=== PATIENT | female | born 1975 | race Caucasian/White ===

== ENCOUNTER 2019-07-29 13:51 | Emergency (ER) | payer BC ==
[~2019-07-29] VITALS: Ht 165.1 cm; Wt 53.5 kg
[2019-07-29 13:58] VITALS: BP 104/70
--- NOTE | 2019-07-29 14:15 | NUR ---
SEEN AND EXAMINED BY .
--- NOTE | 2019-07-29 14:38 | NUR ---
PHARMACY TECHNICIAN ASSISTANT AT BEDSIDE FOR XRAY.
--- NOTE | 2019-07-29 15:32 | NUR ---
FOREIGN BODY EXTRACTION DONE BY .
--- NOTE | 2019-07-29 16:50 | NUR ---
CALLED GI CONSULT DR. JOSE LUIS ROWE.
--- NOTE | 2019-07-29 17:08 | NUR ---
Patient discharged to home in stable condition. Written and verbal after care instructions given. Patient verbalizes understanding of instruction.
== END 2019-07-29 17:10 | disposition home or self-care (01) ==
LOC: ER 13:59
DX: T18.5XXA Foreign body in anus and rectum, initial encounter (principal); Z98.890 Other specified postprocedural states; Z91.011 Allergy to milk products; Z88.8 Allergy status to other drugs, medicaments and biological substances; Z91.018 Allergy to other foods; W45.8XXA Other foreign body or object entering through skin, initial encounter; Y93.89 Activity, other specified; Y92.89 Other specified places as the place of occurrence of the external cause; Y99.8 Other external cause status
CPT/HCPCS: 72190-TC